=== PATIENT | male | born 1970 | race Caucasian/White ===

== ENCOUNTER 2017-09-15 09:06 | Emergency (ER) | payer OTHER, SELFPAY ==
[2017-09-15 09:32] VITALS: BP 108/87; PULSE 90; RESP 18; TEMP 36.8; O2SAT 98; BMI 26.2
--- NOTE | 2017-09-15 09:42 | HMH.EDUTC ---
[facility] [place] Impression: Influenza B Disposition: Home, Self-Care Condition on Discharge: Good Instructions: DI for Influenza -- Adult Additional Instructions: * Discussed tamiflu. pt declined. otherwise, healthy * Lots of rest * Increase fluids, water, gatorade, powerade, pedialyte if infant/toddler/child * Monitor Temp. Tylenol every 4 hours as needed no more then 5 times a day or 4000mg in 24 hours and/or ibuprofen every 6 hours as needed no more then 3200mg in 24 hours (as long as your primary care doctor has told you that it is ok to take both) for fever/aches/pain. ER if fever no less than 101 despite tylenol and Ibuprofen * You (or your child) are contagious until no fever, aches, chills x 24 hours without medication for symptoms. * Bromfed may cause drowsiness. Know how it effects you (or your child) before driving, caring for small children, or sending your child to school. No other antihistamines/allergy medications while taking bromfed. Prescriptions: Brompheniramine/Pseudoephed/Dm [Bromfed DM Cough Syrup 5mL] 10 ml PO QID PRN #240 ml PRN Reason: Cough Referrals: Jodi Isaac [Primary Care Provider] - (IMMEDIATELY for new or worsening symptoms, improvement followed by suddenly feeling worse OR no noticeable improvement over the next 48-72 hours. 911 for difficulty breathing ) Forms: Work/School Release Time of Disposition: 09:50 Medical Decision Making Vital Signs: 09/15/17 09:32 Temperature 98.2 F Temperature Source Oral Pulse Rate [Right Brachial] 90 Respiratory Rate 18 Blood Pressure [Right Arm] 108/87 Blood Pressure Mean [Right Arm] 94 Blood Pressure Source [Right Arm] Automatic Cuff Blood Pressure Position [Right Arm] Supine 02 Sat by Pulse Oximetry 98 Oxygen Delivery Method Room Air Flu A negative Flu B positive - Oumar Inquiry Pt receiving controlled substance: No [facility] [place] - General Stated complaint: poss flu Time Seen by Provider: 09/15/17 09:25 Mode of Arrival: Ambulatory Source of Information: Patient Limitations: No Limitations Description of Symptoms (Recalled from Triage Doc. by RN): Cough, Chest Congestion, chills, body aches since Friday HEENT Symptoms (Recalled from RN notes): Yes Resp Symptoms (Recalled from RN notes): Yes Skin Symptoms (Recalled from RN notes): No MS Symptoms (Recalled from RN notes): No Functional Status (Recalled from RN notes): na - History of Present Illness Provider Complaint: c/o feeling feverish, bodyaches, chills, productive cough, yellow sputum, rhinorrhea since waking up Friday, 2 days ago. Coworkers w/ cough that told him they were not contagious. Has had flu vaccine. otc cold medication hasn't helped. Aleve does except for with cough. - Related Data Home Medications Medication Instructions Recorded Confirmed Zolpidem Tartrate [Ambien 10mg 10 mg PO HS 09/15/17 09/15/17 tablet] Previous Rx's Medication Instructions Recorded Brompheniramine/Pseudoephed/Dm 10 ml PO QID PRN #240 ml 09/15/17 [Bromfed DM Cough Syrup 5mL] Allergies Allergy/AdvReac Type Severity Reaction Status Date / Time No Known Allergies Allergy Verified 09/15/17 09:36 - Worker's Comp Is this a Worker's Comp case?: No Is this an [place] Worker's Comp?: No Is this a [place] Worker's Comp?: No [facility] History I have reviewed the patient's past medical history: Yes (insomnia) Medical History: Denies:: Diabetes Mellitus Type 2, Hypertension Amputation: No Fractures: No Comment: hernia and hand - *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 Smoking Status: Current every day smoker Tobacco Type: cigarettes Alcohol Intake: never - Psychiatric History Expresses thoughts of harming self/others: None Suicide Plan Description: No Plan ROS Obtained: Yes Systems reviewed as appropriate & no additional complaints - Constitutional Reports anorexia (drinking well), Reports body ache(s), Reports chills, Reports fatigue, Reports fever(s) (subjective) - Eyes Den
--- NOTE | 2017-09-15 09:46 | ED_ITS ---
[facility] [place] Clinical Impression: Influenza B Disposition: Home, Self-Care Condition on Discharge: Good Instructions: DI for Influenza -- Adult Additional Instructions: * Discussed tamiflu. pt declined. otherwise, healthy * Lots of rest * Increase fluids, water, gatorade, powerade, pedialyte if infant/toddler/child * Monitor Temp. Tylenol every 4 hours as needed no more then 5 times a day or 4000mg in 24 hours and/or ibuprofen every 6 hours as needed no more then 3200mg in 24 hours (as long as your primary care doctor has told you that it is ok to take both) for fever/aches/pain. ER if fever no less than 101 despite tylenol and Ibuprofen * You (or your child) are contagious until no fever, aches, chills x 24 hours without medication for symptoms. * Bromfed may cause drowsiness. Know how it effects you (or your child) before driving, caring for small children, or sending your child to school. No other antihistamines/allergy medications while taking bromfed. Prescriptions: Brompheniramine/Pseudoephed/Dm [Bromfed DM Cough Syrup 5mL] 10 ml PO QID PRN # 240 ml PRN Reason: Cough Referrals: Jodi Isaac [Primary Care Provider] - (IMMEDIATELY for new or worsening symptoms , improvement followed by suddenly feeling worse OR no noticeable improvement over the next 48-72 hours. 911 for difficulty breathing ) Forms: Work/School Release Time of Disposition: 09:50 Medical Decision Making Vital Signs: 09/15/17 09:32 Temperature 98.2 F Temperature Source Oral Pulse Rate [Right Brachial] 90 Respiratory Rate 18 Blood Pressure [Right Arm] 108/87 Blood Pressure Mean [Right Arm] 94 Blood Pressure Source [Right Arm] Automatic Cuff Blood Pressure Position [Right Arm] Supine 02 Sat by Pulse Oximetry 98 Oxygen Delivery Method Room Air Flu A negative Flu B positive - Oumar Inquiry Pt receiving controlled substance: No [facility] [place] HPI - General Stated complaint: poss flu Time Seen by Provider: 09/15/17 09:25 Mode of Arrival: Ambulatory Source of Information: Patient Limitations: No Limitations Description of Symptoms (Recalled from Triage Doc. by RN): Cough, Chest Congestion, chills, body aches since Friday HEENT Symptoms (Recalled from RN notes): Yes Resp Symptoms (Recalled from RN notes): Yes Skin Symptoms (Recalled from RN notes): No MS Symptoms (Recalled from RN notes): No Functional Status (Recalled from RN notes): na - History of Present Illness Provider Complaint: c/o feeling feverish, bodyaches, chills, productive cough, yellow sputum, rhinorrhea since waking up Friday, 2 days ago. Coworkers w/ cough that told him they were not contagious. Has had flu vaccine. otc cold medication hasn't helped. Aleve does except for with cough. - Related Data Home Medications Medication Instructions Recorded Confirmed Zolpidem Tartrate [Ambien 10mg 10 mg PO HS 09/15/17 09/15/17 tablet] Previous Rx's Medication Instructions Recorded Brompheniramine/Pseudoephed/Dm 10 ml PO QID PRN #240 ml 09/15/17 [Bromfed DM Cough Syrup 5mL] Allergies Allergy/AdvReac Type Severity Reaction Status Date / Time No Known Allergies Allergy Verified 09/15/17 09:36 - Worker's Comp Is this a Worker's Comp case?: No Is this an [facility] Worker's Comp?: No Is this a [place] Worker's Comp?: No [facility] History I have reviewed the patient's past medical
[2017-09-15 09:57] VITALS: BP 110/81; RESP 18; O2SAT 97
== END 2017-09-15 09:58 | disposition home or self-care (01) ==
PROVIDERS: Emergency Provider Nurse Practitioner Family; PCP Nurse Practitioner Family
DX: J10.1 Influenza due to other identified influenza virus with other respiratory manifestations (principal); F17.210 Nicotine dependence, cigarettes, uncomplicated; Z79.899 Other long term (current) drug therapy
CPT/HCPCS: 99201

== ENCOUNTER → 2018-03-03 14:36 | Outpatient (CLI) | payer OTHER, SELFPAY ==
--- NOTE | 2018-03-03 14:50 | XR_ITS ---
[facility] HISTORY: ITS.REASON: KIDNEY STONES ORDERING PHYSICIAN: Jamari De La Rosa MD PATIENT AGE: 47 years COMPARISON: None FINDINGS: The bowel gas pattern is unremarkable. No obvious obstruction.. A 3 mm calcific density is noted along the lower pole the right kidney consistent with right nephrolithiasis. No obvious ureteral calculi. No left renal stone evident as was seen on the previous CT scan.. No obvious renal or ureteral calculi.. No acute bony anomalies evident. There are multiple abdominal wall tacks along the lower abdomen/pelvis. Prostate calcifications noted IMPRESSION: Right nephrolithiasis No left renal or ureteral calculi evident
[2018-03-16 10:10] LABS: Ca oxalate dihydrate 25 % (.)
[2018-03-16 12:28] LABS: Specimen Type Comment: (.)
== END ==
PROVIDERS: PCP Nurse Practitioner Family; Visit Provider Urology
DX: N20.0 Calculus of kidney (principal)
CPT/HCPCS: 74018; 82370

== ENCOUNTER 2021-04-07 19:20 | Emergency (ER) | payer BC, SELFPAY ==
[2021-04-07 19:21] VITALS: BP 195/99; RESP 22; TEMP 36.6; O2SAT 98; BMI 27.1
--- NOTE | 2021-04-07 19:27 | HMH.EDGENADL ---
ED Disposition Clinical Impression: Non-traumatic mid back pain, Hypertensive urgency Disposition: Home, Self-Care Condition on Discharge: Good Instructions: DI for Low Back Pain Prescriptions: Cyclobenzaprine HCl [Flexeril 10mg tablet] 10 mg PO Q8HP PRN 30 Days #90 tab PRN Reason: Muscle Spasm Transmission Status: Pending to [facility] #[id number] Referrals: Jodi Isaac [Primary Care Provider] - Time of Disposition: 19:59 - Critical Care Critical Care Time: No Attestation: On 04/07/21, the high probability of a clinically significant, sudden or life threatening deterioration of the following system(s) required my full and direct attention, intervention and personal management. The time I documented below is in addition to time spent performing reported procedures but includes the following listed in this critical care notation. Medical Decision Making - Medical Records Medical records reviewed: Yes: I reviewed the patient's medical records. - Oumar Inquiry Pt receiving controlled substance: No Vital Signs: 04/07/21 19:21 Temperature 97.8 F Temperature Source Oral Respiratory Rate 22 Blood Pressure [Right Arm] 195/99 H Blood Pressure Mean [Right Arm] 131 Blood Pressure Source [Right Arm] Automatic Cuff Blood Pressure Position [Right Arm] Sitting 02 Sat by Pulse Oximetry 98 Oxygen Delivery Method Room Air - Lab Data Lab Results 04/07/21 19:30: Urine Color Yellow, Urine Appearance Clear, Urine pH 7.0, Ur Specific [place] 1.020, Urine Protein Negative, Urine Glucose (UA) Negative, Urine Ketones Negative, Urine Blood Negative, Urine Nitrate Negative, Urine Bilirubin Negative, Urine Urobilinogen 0.2, Ur Leukocyte Esterase Negative, Urine RBC None, Urine WBC None, Ur Squamous Epith Cells None, Urine Bacteria None Orders (Tests/Meds): ED MEDICATIONS Discontinued Medications Generic Name Dose Route Start Last Admin Trade Name Freq PRN Reason Stop Dose Admin Orphenadrine Citrate 60 mg 04/07/21 19:32 04/07/21 19:34 Orphenadrine Citrate 60mg/2ml Vial IM 04/07/21 19:33 60 mg ONCE ONE Administration Medical Decision Narrative: 50yo M evaluated for right-sided back pain. Patient no acute distress on initial evaluation. Is tender to palpate right side paraspinally and right flank. Neurologically, the patient's exam is unremarkable. He has taken NSAIDs prior to arrival. Receives muscle relaxer IM. Discharged home with muscle relaxer as well. Patient noted to have hypertensive urgency without signs or symptoms of hypertensive emergency. Will monitor briefly for improvement in blood pressure prior to treatment. Patient's blood pressure now 166/104. We will treat clonidine 0.1 mg. Patient is taken Flexeril in the past with good effect. Will prescribe this. Patient will be appropriate stable for discharge once his blood pressure improves. General Adult HPI - General Stated complaint: Back pain Time Seen by Provider: 04/07/21 19:27 Mode of Arrival: Ambulatory - History of Present Illness HPI narrative: 50yo M with past medical history of low back pain presents the emergency department secondary to right-sided mid back pain. Patient reports symptoms began last Friday while cooking hotdogs. Denies any heavy lifting, fall, other trauma. States he coughed and developed pain on the right side. He was evaluated by a chiropractor Friday, Friday, Friday with minimal improvement. Patient coughed again and symptoms returned today. Denies any difficulty with voiding or having a bowel movement. Denies any fever. - Related Data Home Medications Medication Instructions Recorded Confirmed zolpidem 10 mg tablet 10 mg PO #30 tab 04/05/19 04/05/19 Previous Rx's Medication Instructions Recorded diclofenac sodium 1 % topical gel 4 g TOPICAL QID PRN #30 g 04/05/19 meloxicam 7.5 mg tablet 7.5 mg PO DAILY #30 tab 04/05/19 Cyclobenzaprine HCl [Flexeril 10mg 10 mg PO Q8HP
[2021-04-07 19:35] LABS: Microscopic, Urine URINE MICROSCOPIC (MICROSCOPIC)
[2021-04-07 19:37] LABS: Appearance,Urine CLEAR (Clear); Bilirubin,Urine Negative (Negative); Blood, Urine Negative (Negative); Color,Urine YELLOW (Yellow); Glucose,Urine (UA) Negative (Negative); Ketones,Urine Negative (Negative); Leukocyte Esterase,Urine Negative (Negative); Nitrate,Urine Negative (Negative); Protein,Urine Negative (Negative); Urobilinogen,Urine 0.2 EU/dl (0.2)
[2021-04-07 20:13] VITALS: BP 112/74; PULSE 73; RESP 17; TEMP 36.8; O2SAT 98
== END 2021-04-07 20:16 | disposition home or self-care (01) ==
PROVIDERS: Emergency Provider Family Medicine; PCP Nurse Practitioner Family
DX: M54.6 Pain in thoracic spine (principal); I16.0 Hypertensive urgency; Z87.442 Personal history of urinary calculi; F17.210 Nicotine dependence, cigarettes, uncomplicated
CPT/HCPCS: 81001; 96372; 99282

== ENCOUNTER 2021-04-08 01:26 | Emergency (ER) | payer BC, SELFPAY ==
[2021-04-08 01:30] VITALS: BP 159/112; PULSE 65; RESP 17; TEMP 36.7; O2SAT 98; BMI 27.1
--- NOTE | 2021-04-08 01:45 | HMH.EDGENADL ---
ED Disposition Clinical Impression: Thoracic back pain Qualifiers: Chronicity: chronic Back pain laterality: right Qualified Code(s): M54.6 - Pain in thoracic spine; G89.29 - Other chronic pain Disposition: Home, Self-Care Condition on Discharge: Good Instructions: DI for Low Back Pain Referrals: Provider,Referral, [Referring] - - Critical Care Critical Care Time: No Attestation: On 04/08/21, the high probability of a clinically significant, sudden or life threatening deterioration of the following system(s) required my full and direct attention, intervention and personal management. The time I documented below is in addition to time spent performing reported procedures but includes the following listed in this critical care notation. Medical Decision Making - Oumar Inquiry Pt receiving controlled substance: No Vital Signs: 04/08/21 01:30 04/08/21 02:00 Temperature 98.0 F Temperature Source Oral Pulse Rate 63 Pulse Rate [Right Brachial] 65 Respiratory Rate 17 Blood Pressure 152/85 H Blood Pressure [Right Arm] 159/112 H Blood Pressure Mean [Right Arm] 127 Blood Pressure Source [Right Arm] Automatic Cuff Blood Pressure Position [Right Arm] Sitting 02 Sat by Pulse Oximetry 98 95 Oxygen Delivery Method Room Air Room Air - Lab Data Lab Results 04/08/21 01:45: WBC 12.7 H, RBC 5.32, Hgb 16.8, Hct 49.8, MCV 93.6, MCH 31.6 H, MCHC 33.7, RDW 13.6, Plt Count 310, MPV 7.9, Neut % (Auto) 68.0, Lymph % (Auto) 24.1, [place] % (Auto) 5.4, Eos % (Auto) 1.7, Baso % (Auto) 0.8, Neut # (Auto) 8.7 H, Lymph # (Auto) 3.1, [place] # (Auto) 0.7, Eos # (Auto) 0.2, Baso # (Auto) 0.1 04/08/21 01:45: Sodium 141, Potassium 4.1, Chloride 105, Carbon Dioxide 28, Anion Gap 12.1, BUN 11, Creatinine 0.90, Estimated Creat Clear 123, Estimated GFR 89, Est GFR ( Amer) 107, Glucose 101 H, Calcium 9.2, Total Bilirubin 0.7, AST 46, ALT 44, Alkaline Phosphatase 70, Total Protein 7.3, Albumin 4.4, Globulin 2.9, Albumin/Globulin Ratio 1.5, Lipase 81 Result diagrams: 04/08/21 01:45 04/08/21 01:45 Orders (Tests/Meds): ED MEDICATIONS Discontinued Medications Generic Name Dose Route Start Last Admin Trade Name Evan PRN Reason Stop Dose Admin Sodium Chloride 1,000 mls @ 500 mls/hr 04/08/21 01:45 04/08/21 01:55 Sod Chlor 0.9% 1000ml Bag IV 05/08/21 01:44 Not Given .Q2H MYLES Iopamidol 75 ml 04/08/21 02:41 04/08/21 02:41 Iopamidol-370 (76%);100ml Bottle IV 04/08/21 02:42 75 ml ONCE ONE Administration Morphine Sulfate 4 mg 04/08/21 01:42 04/08/21 01:48 Morphine 4mg/Ml Syringe IV 04/08/21 01:43 4 mg ONCE ONE Administration Sodium Chloride 500 ml 04/08/21 01:56 04/08/21 01:57 Sodium Chloride 0.9% 500ml Bag IV 04/08/21 01:57 500 ml ONCE ONE Administration Sodium Chloride 10 ml 04/08/21 02:41 04/08/21 02:41 Sodium Chloride 0.9% 10ml Syr (Rad Only) IV 04/08/21 02:42 10 ml ONCE ONE Administration Medical Decision Narrative: Upon arrival patient is hypertensive but otherwise hemodynamically stable afebrile nontoxic-appearing. Differential diagnosis includes but is not limited to nephrolithiasis, spinal strain, cholecystitis, choledocholithiasis. Will obtain broad laboratory work-up along with CT scan for further work-up and evaluation. Also obtain urinalysis. Patient was given 4 mg of morphine for symptomatic relief. Laboratory work-up interpreted independently and overall unremarkable white count mildly elevated 12.7 otherwise unremarkable no elevated LFTs no significant electrolyte abnormalities patient had relief with morphine. Creatinine within normal limits. Lipase normal. UA from visit earlier today reviewed and unremarkable, no signs consistent with RBCs or WBC/nitrites CT scan reviewed and overall unremarkable patient had a left-sided renal stone however patient's pain is all in the right do not believe this to be the etiology of his pain. Is most likely musculosk
--- NOTE | 2021-04-08 01:58 | CT_ITS ---
PROCEDURE INFORMATION: Exam: CT Abdomen And Pelvis With Contrast Exam date and time: 04/08/2021 1:58 AM Age: 50 years old Clinical indication: Pain; Other: Low back; Patient HX: HX of hernia SX; Additional info: Ruq pain TECHNIQUE: Imaging protocol: Computed tomography of the abdomen and pelvis with contrast. Radiation optimization: All CT scans at this facility use at least one of these dose optimization techniques: automated exposure control; mA and/or kV adjustment per patient size (includes targeted exams where dose is matched to clinical indication); or iterative reconstruction. Contrast material: ISOVUE; Contrast volume: 75 ml; Contrast route: IV; [facility] pelvis wo con 02/09/2018 12:32 PM FINDINGS: Lungs: Uremarkable. No infiltrate. Liver: Unremarkagble.No mass. Gallbladder and bile ducts: Normal. No calcified stones. No ductal dilation. Pancreas: Normal. No ductal dilation. Spleen: Calcified granulomas of the spleen. Adrenal glands: Normal. No mass. Kidneys and ureters: 2.1 cm exophytic cyst arising from the left kidney. 4 mm nonobstructing left renal calyceal calculus at the upper pole level. Stomach and bowel: No inflammatory or obstructive changes of bowel. Appendix: No evidence of appendicitis. Intraperitoneal space: No free air or free fluid. Vasculature: Unremarkable. No abdominal aortic aneurysm. Lymph nodes: Unremarkable. No enlarged lymph nodes. Urinary bladder: Unremarkable as visualized. Reproductive: Unremarkable as visualized. Bones/joints: Unremarkable. No acute fracture. Soft tissues: Ventral abdominal wall hernia repair. IMPRESSION: 4 mm nonobstructing left renal calyceal calculus at the upper pole level. COMMENTS: Consistent with the [employer]'s Incidental Findings Committee white paper (J Am Kimberly Radiol 2018): Any incidental renal lesion less than 1 cm or classified as too small to characterize, or any incidental cystic renal lesion characterized as simple-appearing, is likely benign. No follow-up imaging is recommended for these lesions per consensus recommendations based on imaging criteria.
[2021-04-08 02:00] VITALS: BP 152/85; PULSE 63; O2SAT 95
[2021-04-08 02:01] LABS: Basophils # 0.1 K/mm3 (0-0.2); Basophils % 0.8 % (0.1-2.0); Eosinophils # 0.2 K/mm3 (0.0-0.4); Eosinophils % 1.7 % (0.1-12.0); Hematocrit 49.8 % (42.0-52.0); Hemoglobin 16.8 g/dL (14.1-18.0); Lymphocytes # 3.1 K/mm3 (0.7-4.5); Lymphocytes % 24.1 % (10-50); Mean Corpuscular HGB Conc 33.7 g/dL (31.8-35.4); Mean Corpuscular Hemoglobin 31.6 pg (27.0-31.2); Mean Corpuscular Volume 93.6 fl (80-94); Mean Platelet Volume 7.9 fl (7.4-10.4); Monocytes # 0.7 K/mm3 (0.1-1.0); Monocytes % 5.4 % (1.7-9.3); Neutrophils # 8.7 K/mm3 (1.8-7.8); Platelet Count 310 K/mm3 (142-424); Red Blood Count 5.32 M/mm3 (4.60-6.20); Red Cell Distribution Width 13.6 % (11.5-17.5); White Blood Count 12.7 K/mm3 (4.8-10.8)
[2021-04-08 02:17] LABS: Alanine Aminotransferase 44 U/L (12-78); Albumin Level 4.4 g/dl (3.5-5.0); Albumin/Globulin Ratio 1.5 (1.1-1.8); Alkaline Phosphatase 70 U/L (38-126); Anion Gap 12.1 mEq/L (5-15); Aspartate Amino Transferase 46 U/L (17-59); Bilirubin,Total 0.7 mg/dl (0.2-1.3); Blood Urea Nitrogen 11 mg/dl (9-20); Calcium 9.2 mg/dl (8.4-10.2); Carbon Dioxide 28 mmol/L (22.0-30.0); Chloride 105 mmol/L (98-107); Creatinine Clearance Estimated 123 mL/min (50-200); Estimated Glomerular Filt Rate 89 ml/min (>60); GFR (African American) 107 ML/MIN (>60); Globulin 2.9 g/dL (1.3-3.2); Glucose 101 mg/dl (74-100); Lipase 81 U/L (23-300); Potassium 4.1 mmoL/L (3.5-5.1); Sodium 141 mmol/L (136-145); Total Protein,Serum 7.3 g/dl (6.3-8.2)
--- NOTE | 2021-04-08 02:39 | PC.NURSE ---
pt back form CT
--- NOTE | 2021-04-08 04:28 | PC.NURSE ---
0325 Radiology contacted [facility] re: CT scan, was told that there was a high volume and was not assigned
[2021-04-08 04:50] VITALS: BP 133/89; PULSE 90; RESP 20; TEMP 36.7; O2SAT 96
== END 2021-04-08 04:57 | disposition home or self-care (01) ==
PROVIDERS: Emergency Provider Emergency Medicine; PCP Nurse Practitioner Family
DX: G89.29 Other chronic pain (principal); M54.6 Pain in thoracic spine; I10 Essential (primary) hypertension; Z87.442 Personal history of urinary calculi
CPT/HCPCS: 74177; 80053; 83690; 85025; 96365; 96375; 99284; Q9967

== ENCOUNTER → 2021-10-08 09:04 | Outpatient (CLI) | payer BC, SELFPAY ==
[2021-10-09 06:48] LABS: Covid-19 Nasal PCR Sendout Lex POSITIVE
== END ==
PROVIDERS: PCP Family Medicine; Visit Provider Nurse Practitioner
DX: U07.1 COVID-19 (principal)
CPT/HCPCS: C9803; U0004; U0005

== ENCOUNTER 2022-03-22 12:43 | Emergency (ER) | payer BC, SELFPAY ==
[2022-03-22 13:17] VITALS: BP 112/73; PULSE 70; RESP 17; TEMP 36.7; O2SAT 98; BMI 25.7
--- NOTE | 2022-03-22 13:20 | HMH.EDUTC ---
[facility] [place] Impression: Viral syndrome Disposition: Home, Self-Care Condition on Discharge: Good Instructions: DI for Viral Syndrome, DI for COVID-19 (Suspected or Confirmed ), Preventing the Spread of Coronavirus Discharge Instructions Additional Instructions: Drink plenty of fluids. Take tylenol or ibuprofen for pain or fever. Follow up with your regular doctor. GO TO THE ER FOR ANY WORSENING SYMPTOMS Quarantine until you know the results of your covid-19 test. Notify your school or workplace of your results and follow their instructions regarding return to work/school. Referrals: Provider,Referral, [Primary Care Provider] - Time of Disposition: 13:49 Medical Decision Making - Medical Records Medical records reviewed: No: I reviewed the patient's medical records. - Oumar Inquiry Pt receiving controlled substance: No Vital Signs: 03/22/22 13:17 03/22/22 13:50 Temperature 98.1 F 98.1 F Temperature Source Oral Pulse Rate 70 Pulse Rate [Left] 70 Respiratory Rate 17 17 Blood Pressure 112/73 Blood Pressure [Right Arm] 112/73 Blood Pressure Mean [Right Arm] 86 02 Sat by Pulse Oximetry 98 [facility] [place] - General Stated complaint: covid exposure, h/a Time Seen by Provider: 03/22/22 13:20 Description of Symptoms (Recalled from Triage Doc. by RN): patient comes in for covid test, patients symptoms are headache. patient was exposed by girlfriends childrenl. HEENT Symptoms (Recalled from RN notes): Yes Resp Symptoms (Recalled from RN notes): No Skin Symptoms (Recalled from RN notes): No MS Symptoms (Recalled from RN notes): No Functional Status (Recalled from RN notes): n/a - History of Present Illness Provider Complaint: Members of his family have tested positive for covid-19. Since yesterday he has not felt good and he has had a head ache. - Related Data Previous Rx's Medication Instructions Recorded diclofenac sodium 1 % topical gel 4 g TOPICAL QID PRN #30 g 04/05/19 Cyclobenzaprine HCl [Flexeril 10mg 10 mg PO Q8HP PRN 30 Days #90 tab 04/07/21 tablet] Allergies Allergy/AdvReac Type Severity Reaction Status Date / Time No Known Allergies Allergy Verified 03/22/22 13:20 - Worker's Comp Is this a Worker's Comp case?: No [facility] History - Hepatitis A Screen Attestation statement:: This patient has been screened for Hepatitis A risk factors. I have reviewed the patient's past medical history: Yes Medical History: Reports:: Kidney Stones Denies:: Diabetes Mellitus Type 1, Diabetes Mellitus Type 2, Hypertension Laterality Cases: Bilateral: Tonsillectomy Amputation: No Fractures: Yes (wrist) Comment: left hand surgery, double hernia surgery - 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 Smoking Status: Current every day smoker Tobacco Type: cigarettes # Packs/Day (cigarettes): 1 Alcohol Intake: current Alcohol Intake Frequency:: holidays/special occasions only Occupational Status: other Family Hx:: Heart Attack, Coronary Artery Disease, Kidney Disease, Hypertension, Thyroid Disorder ROS Obtained: Yes All systems reviewed & no additional complaints - Constitutional Constitutional: Reports as per HPI - Eyes Eyes: Denies eye discharge - ENT Ears, Nose, Mouth, and Throat: Reports as per HPI - Cardiovascular Cardiovascular: Denies chest pain - Respiratory Respiratory: Reports cough Physical Exam - General General appearance: alert, in no apparent distress - Head Head exam: atraumatic, normocephalic, normal inspection - Eye Eye exam: Present: normal appearance, PERRL, EOMI - ENT ENT exam: Present: normal exam, normal oropharynx, mucous membranes moist, TM's normal bilaterally, normal external ear exam - Neck Neck exam: Present: normal inspection, full ROM, trachea midline. Absent: meningismus, lymphadenopathy - Chest Chest inspection: Present: normal inspection, symmetric chest wall rise. Absent: tenderness - Respiratory Respiratory exa
[2022-03-22 13:50] VITALS: BP 112/73; PULSE 70; RESP 17; TEMP 36.7
== END 2022-03-22 13:53 | disposition home or self-care (01) ==
PROVIDERS: Emergency Provider Nurse Practitioner Family
DX: Z20.822 Contact with and (suspected) exposure to COVID-19 (principal); B34.9 Viral infection, unspecified
CPT/HCPCS: 99212; C9803; G0463; U0003; U0005

== ENCOUNTER 2022-03-27 08:01 | Emergency (ER) | payer BC, SELFPAY ==
--- NOTE | 2022-03-27 08:04 | PC.NURSE ---
pt provided paperwork to fill out for visit
--- NOTE | 2022-03-27 08:08 | PC.NURSE ---
pt brought back to room 1
[2022-03-27 08:10] VITALS: BP 151/96; PULSE 86; RESP 18; TEMP 36.4; O2SAT 97; BMI 25.7
--- NOTE | 2022-03-27 08:27 | HMH.EDUTC ---
[facility] Disposition Clinical Impression: Viral syndrome, Exposure to COVID-19 virus Disposition: Home, Self-Care Condition on Discharge: Good Instructions: DI for COVID-19 (Suspected or Confirmed ), Preventing the Spread of Coronavirus Discharge Instructions Additional Instructions: Drink plenty of fluids. Take tylenol or ibuprofen for pain or fever. Take the medications as directed. Follow up with your regular doctor. GO TO THE ER FOR ANY WORSENING SYMPTOMS Quarantine until you know the results of your covid-19 test. Notify your school or workplace of your results and follow their instructions regarding return to work/school. Prescriptions: Ondansetron [Zofran 4mg ODT] 4 mg PO Q8HP PRN #12 tab PRN Reason: Nausea Transmission Status: Received by [facility] Benzonatate [Benzonatate 100mg cap] 100 mg PO TIDP PRN #30 cap PRN Reason: Cough Transmission Status: Received by [facility] methylPREDNISolone [Medrol] 4 mg PO DIRECTED 6 Days #21 packet Transmission Status: Received by [facility] Referrals: Provider,Referral, [Primary Care Provider] - Time of Disposition: 08:35 Medical Decision Making - Medical Records Medical records reviewed: No: I reviewed the patient's medical records. - Oumar Inquiry Pt receiving controlled substance: No Vital Signs: 03/27/22 08:10 03/27/22 08:43 Temperature 97.5 F L 97.5 F L Temperature Source Oral Oral Pulse Rate 84 Pulse Rate [Left Radial] 86 Respiratory Rate 18 18 Blood Pressure 148/86 H Blood Pressure [Right Arm] 151/96 H Blood Pressure Mean [Right Arm] 114 02 Sat by Pulse Oximetry 97 Oxygen Delivery Method Room Air Room Air Orders (Tests/Meds): ORDERS Category Date Time Status Covid-19 Nasal PCR ([facility]) Routine Lab 03/27/22 08:[address] [facility] HPI - General Stated complaint: COVID Test; Cough Runny nose ear pain Time Seen by Provider: 03/27/22 08:27 Mode of Arrival: Ambulatory Source of Information: Patient Limitations: No Limitations Description of Symptoms (Recalled from Triage Doc. by RN): pt to [facility] c/o left ear pain and non-productive cough x2 days. pt states he has had a recent covid exposure and requests a covid test. HEENT Symptoms (Recalled from RN notes): Yes Resp Symptoms (Recalled from RN notes): Yes Skin Symptoms (Recalled from RN notes): No MS Symptoms (Recalled from RN notes): No Functional Status (Recalled from RN notes): na - History of Present Illness Provider Complaint: He states that he has multiple members of his family that have covid-19. He began having a low grade fever and feeling bad 2 days ago. He has left ear pain and pressure at this time. - Related Data Previous Rx's Medication Instructions Recorded Benzonatate [Benzonatate 100mg 100 mg PO TIDP PRN #30 cap 03/27/22 cap] Ondansetron [Zofran 4mg ODT] 4 mg PO Q8HP PRN #12 tab 03/27/22 methylPREDNISolone [Medrol] 4 mg PO DIRECTED 6 Days #21 03/27/22 packet Allergies Allergy/AdvReac Type Severity Reaction Status Date / Time No Known Allergies Allergy Verified 03/27/22 08:14 - Worker's Comp Is this a Worker's Comp case?: No [facility] History - Hepatitis A Screen Attestation statement:: This patient has been screened for Hepatitis A risk factors. I have reviewed the patient's past medical history: Yes Medical History: Reports:: Kidney Stones Denies:: Diabetes Mellitus Type 1, Diabetes Mellitus Type 2, Hypertension Laterality Cases: Bilateral: Tonsillectomy Amputation: No Fractures: Yes (wrist) Comment: left hand surgery, double hernia surgery - 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 Smoking Status: Current every day smoker Tobacco Type: cigarettes # Packs/Day (cigarettes): 1 Alcohol Intake: current Alcohol Intake Frequency:: holidays/special occasions only Occupational Status: other Family Hx:: Heart Attack, Coronary Artery Disease, Kidney Disease, Hypertension,
--- NOTE | 2022-03-27 08:28 | PC.NURSE ---
[facility] provider at the bedside
[2022-03-27 08:43] VITALS: BP 148/86; PULSE 84; RESP 18; TEMP 36.4; O2SAT 97
== END 2022-03-27 08:44 | disposition home or self-care (01) ==
PROVIDERS: Emergency Provider Nurse Practitioner Family
DX: Z20.822 Contact with and (suspected) exposure to COVID-19 (principal); R05.9 Cough, unspecified; R09.89 Other specified symptoms and signs involving the circulatory and respiratory systems; H92.02 Otalgia, left ear
CPT/HCPCS: 99212; C9803; G0463; U0003; U0005

== ENCOUNTER 2022-08-20 17:17 | Emergency (ER) | payer OTHER, SELFPAY ==
--- NOTE | 2022-08-20 18:22 | XR_ITS ---
PROCEDURE INFORMATION: Exam: XR Left Hand Exam date and time: 08/20/2022 6:23 PM Age: 52 years old Clinical indication: Pain; Hand; Left TECHNIQUE: Imaging protocol: Radiologic exam of the Left hand. Views: 3 or more views. COMPARISON: No relevant prior studies available. FINDINGS: Bones/joints: Subcentimeter bone fragment adjacent to the ulnar aspect of the distal interphalangeal articulation of the 3rd finger appears well corticated and likely reflects nonunion secondary ossification center or remote avulsion fragment. No evidence of acute displaced cortical disruption or dislocation is seen. Mild degenerative changes most notably at the junction of the greater multangular and 1st metacarpal. Soft tissues: No focal soft tissue swelling or radiopaque foreign object. IMPRESSION: No acute fracture is identified.
--- NOTE | 2022-08-20 18:22 | XR_ITS ---
PROCEDURE INFORMATION: Exam: XR Left Wrist Exam date and time: 08/20/2022 6:24 PM Age: 52 years old Clinical indication: Pain; Wrist; Left TECHNIQUE: Imaging protocol: Radiologic exam of the Left wrist. Views: 3 or more views. COMPARISON: No relevant prior studies available. FINDINGS: Bones/joints: No evidence of acute displaced cortical disruption or dislocation. Osteophytosis and eburnation of the articulating surfaces most notably at the junction of the trapezium and 1st metacarpal. Soft tissues: No radiopaque foreign object or localized soft tissue swelling is appreciated. IMPRESSION: No acute fracture is identified.
[2022-08-20 18:33] VITALS: BP 167/86; PULSE 63; RESP 18; TEMP 36.9; O2SAT 97; BMI 25.7
--- NOTE | 2022-08-20 18:54 | EXP.UTC ---
Discharge Plan Disposition Patient Disposition: Home, Self-Care Condition: Good Prescriptions Prescriptions: No Action benzonatate 100 MG capsule 100 mg PO TIDP PRN (Reason: Cough) Qty: 30 0RF methylprednisolone 4 MG tablets,dose pack 4 mg PO DIRECTED 6 Days Qty: 21 0RF ondansetron 4 MG tablet,disintegrating 4 mg PO Q8HP PRN (Reason: Nausea) Qty: 12 0RF Referrals Follow up/Referrals: Jodi Isaac [Primary Care Provider] - See instructions Activity Restrictions/Add. Instructions Additional Instructions/Restrictions: sprain- rest Ice with cold pack for 20 minutes remove may repeat for comfort every hour splint for support and swelling no less in the shower. Be sure not too tight but not to lose either Elevate with arm above your heart as much as possible to help reduce swelling and therefore pain Ibuprofen every 6 hours as needed for pain or inflammation. If needs something more you can take Tylenol every 4 hours as needed as long as her primary care has told he was okayed for you to take both. Follow-up immediately if new or worsening symptoms or no noticeable improvement over the next 3-5 days. call ortho if no improvement Clinical Impressions Clinical Impression: Left wrist sprain Instructions Patient Instructions: DI for Wrist Sprain Discharge ED Provider: Kamla ([facility] [facility] [place] General Stated complaint: AO 08/11 FELL @HOME ON LEFT HAND Mode of Arrival: Ambulatory Source of Information: Patient Limitations: No Limitations Time Seen by Provider: 08/20/22 18:54 Description of Symptoms (Recalled from Triage Doc. by RN): pt comes in with c/o left hand and wrist pain. pt fell 2 weeks ago rabibt hunting. not getting any better. HEENT Symptoms (Recalled from RN notes): No Resp Symptoms (Recalled from RN notes): No Skin Symptoms (Recalled from RN notes): No MS Symptoms (Recalled from RN notes): Yes Functional Status (Recalled from RN notes): n/a History of Present Illness Provider Complaint: 52 yr old male c/o left hand and wrist pain. pt fell 2 weeks ago rabbits hunting. not getting any better Related Data Previous Rx's Medication Instructions Recorded benzonatate 100 mg capsule 100 mg PO TIDP PRN Cough #30 caps 03/27/22 methylprednisolone 4 mg tablets in 4 mg PO DIRECTED 6 days #21 03/27/22 a dose pack packets ondansetron 4 mg disintegrating 4 mg PO Q8HP PRN Nausea #12 tabs 03/27/22 tablet Allergies Allergy/AdvReac Type Severity Reaction Status Date / Time No Known Allergies Allergy Verified 08/20/22 18:36 Worker's Comp Is this a Worker's Comp case?: No PFSH PFS Disclaimer: The information contained in this section may have been updated after the patient was seen, as this information can be updated by other users. 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) Smoking Status: Current every day smoker tobacco type: cigarettes packs per day: 1 alcohol intake: current current occupational status: other Travel in the last 8 weeks: None ROS Obtained: Yes All systems reviewed & no additional complaints except as documented Constitutional Constitutional: Reports system reviewed and no additional complaints, except as documented and Reports as per HPI Eyes Eyes: Reports system reviewed and no additional complaints, except as documented ENT Ears, Nose, Mouth, and Throat: Reports system reviewed and no additional complaints, except as documented Cardiovascular Cardiovascular: Reports system reviewed and no additional complaints, except as documented Respiratory Respiratory: Reports system reviewed and no additional complaints, except as documented Gastrointestinal Gastrointestingal: Reports system reviewed and no additional complaints, except as documented Musculoskeletal Musculoskeletal: Reports system reviewed and no additional complaints, except as documented, Reports as per HPI, Reports arthralgias and Reports limited range of motion
[2022-08-20 19:14] VITALS: BP 167/86; PULSE 63; RESP 18; TEMP 36.9
== END 2022-08-20 19:15 | disposition home or self-care (01) ==
PROVIDERS: Emergency Provider Nurse Practitioner Family; PCP Nurse Practitioner Family
DX: S63.502A Unspecified sprain of left wrist, initial encounter (principal); W19.XXXA Unspecified fall, initial encounter
CPT/HCPCS: 73110; 73130; 99213; G0463

== ENCOUNTER 2025-07-04 14:38 | Outpatient (CLI) | payer OTHER, SELFPAY ==
--- NOTE | 2025-07-04 14:43 | XR_ITS ---
FINAL REPORT CLINICAL HISTORY: left sided rib pain FINDINGS: 2 views of the chest were obtained . The heart is normal in size. The mediastinum is within normal limits. Nodular densities are seen in the right upper lobe with shaded scarring, likely postinflammatory. Lungs are otherwise clear there is no pneumothorax. Osseous structures are unremarkable. IMPRESSION: No acute cardiopulmonary process. Reviewed, Interpreted and Dictated by Milan Ruiz MD Transcribed by Angeline Vernon Authenticated and [facility]
--- NOTE | 2025-07-04 14:43 | XR_ITS ---
FINAL REPORT CLINICAL HISTORY: LT-SIDE CHEST WALL PAIN FINDINGS: LEFT RIBS 3 views were obtained. There is no acute fracture or dislocation. Visualized joint spaces are normally aligned. Soft tissues are unremarkable. IMPRESSION: No acute bony abnormality. Reviewed, Interpreted and Dictated by Milan Ruiz MD Transcribed by Angeline Vernon Authenticated and [facility]
--- OUTSIDE RECORDS SUMMARY | 2025-07-04 15:38 | XMS_ITS | Encounter Summary ---
Author Organization [facility] Address [address] [place] [address] Care Team Providers Care Acid Concentrator Name Role Phone Jodi Isaac APRN Primary Care Provider [phone] Reason for Visit * Reason Comments Med Refill Encounter Details Date Type Department Care Team (Late st Contact Info) Description 11/15/2019 Refill [facility] [address] [place] [address] Jodi Isaac, [address] [place] [address] Primary insomnia 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 Tobacco Use Types Packs/Day Years Used Date Smoking Tobacco: Former Cigarettes Q uit: 09/17/2018 Smokeless Tobacco: Never Alcohol Use Standard Drinks/Week Comments Yes 0 (1 standard drink = 0.6 oz pur e alcohol) Sex and Gender Information Value Date Recorded Sex Assigned at Not on file Legal Sex Male 4:38 PM EDT Gender Identity Not on file Sexual Orientation Not on file documented as of this encounter Plan of Treatment Not on file documented as of this encounter Visit Diagnoses Diagnosis Primary insomnia Persistent disorder of initiating or maintaining sleep documented in this encounter Care Teams Acid Concentrator Relationship Specialty Start Date End Date Jodi Isaac, [address] [place] [address] PCP - General Family Medicine 03/14/17 documented as of this encounter
--- OUTSIDE RECORDS SUMMARY | 2025-07-04 15:38 | XMS_ITS | Patient Health Record ---
Author Organization [facility] Address [address] [facility] [address] [place] [id number] Care Team Providers Care Bulk Coolers Installer Name Role Phone Smith Pearce Unavailable [phone] Allergies No Known Allergies Reason For Referral No Information Medications Medication SIG (Take, Route, Frequency, Duration) Notes Start Date End Date Status Meloxicam 15 MG 1 tablet Orally Once a day; Duration: 30 day(s) 12/05/2023 Not-Angel ing Vitamin D (Ergocalciferol) 1.25 MG (27541 UT) 1 capsule Orally once a week 03/13/2023 Not-Taking Nicotine 21 MG/24HR 1 patch to skin Transdermal Once a day; Duration: 30 days 07/04/2025 Active Gabapentin 300 MG 1 capsule Orally twi ce a day; Duration: 15 days 07/04/2025 Active Immunizations Vaccine Route Administration Date Status Comme nts COVID 19 Pfizer Unknown 07/12/2021 Administered Problems Problem Type SNOMED Code ICD Code Onset Dates Problem Status W/U Status Risk Notes Problem Tobacco user ([id number]) Cigarette nicotine dependence without complication (F17.210) Active confirmed Vital Signs Heart Rate 95 /min 07/04/2025 Blood pressure diastolic 78 mm Hg 07/04/2025 Height 73 in 07/04/2025 Blood pressure systolic 130 mm Hg 07/04/2025 Weight 213.6 lbs 07/04/2025 BMI 28.18 kg/m2 07/04/2025 Encounters Encounter Location Date Provider Diagnosis [facility] [address] [place] [facility] [address] [place] [phone] 07/04/2025 Smith Pearce Left-sided chest wal l pain R07.89 Assessments Encounter Date Diagnosis (ICD Code) Assessment Notes Treatment Notes Treatment Clinical Notes Section Notes 07/04/2025 Left-sided chest wall pain (ICD-10 - R07.89) Plan Of Treatment Pending Test Test Name Order Date CXR 07/04/2025 X ray : ribs left 07/04/2025 Insurance Providers Payer Name Payer Address Payer Phone Subscriber Number Group Number Insured Name Patient Relationship to Insured Coverage Start Date Coverage End Date [facility] [address] [place] [address] [phone] [id number] KATHRIN Andrade Self - patient is the insured Medical (General) History Medical History History ICD Code diverticulitis kidney stones Colon polyps 50 pack year smoking history as of 2022 Surgical History Surgery Date(Month/Year) hernia nerve surgery R hand colonoscopy 2019 kidney stone 2019
--- OUTSIDE RECORDS SUMMARY | 2025-07-04 15:39 | XMS_ITS | Clinical Summary ---
Author Organization [facility] Address [address] [place] [address] Care Team Providers Care Table Filler Name Role Phone Jodi Isaac Tania PAEZ Primary Care Provider [phone] Allergies No known active allergies Medications zolpidem (AMBIEN) 10 MG tabletIndication s:Primary insomnia Take 1 tablet by mouth At Night As Needed for Sleep. for sleep 30 tablet 5 11/12/2019 Active Active Problems Problem Noted Date Diagnosed Date Insomnia 02/05/2018 Resolved Problems Problem Noted Date Diagnosed Date Resolved Date Nephrolithiasis 02/05/2018 03/03/2019 Irritable behavior 02/05/2018 9 Gross hematuria 02/05/2018 03/03/2019 Family History Medical History Relation Name Comments COPD Father Relation Name Status Comments Father 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 Tobacco Use Types Packs/Day Years Used Date Smoking Tobacco: Former Cigarettes Q uit: 09/17/2018 Smokeless Tobacco: Never Tobacco Cessation:Ready to Q uit: Yes Alcohol Use Standard Drinks/Week Comments Yes 0 (1 standard drink = 0.6 oz pur e alcohol) Abuse Screen Answer Date Recorded Unsafe at Home or Work/School Not on file Feels Threatened by Someone? Not on file 07/2023 Does Anyone Keep You from Co ntacting Others or Doint Things Outside the Home? Not on file 06/18/2023 Physical Sign of Abuse Present Not on file 1 Housing Stability Answer Date Recorded Current Living Arrangements Not on file 06/08 Potentially Unsafe Housing Conditions Not on eric e 06/18/2023 Family and Community Support Answer Rick e Recorded Help with Day-to-Day Activities Not on file 06/18/2023 Lonely or Isolated Not on file 06/18/2023 Employment Answer Date Recorded Do you want help finding or keeping work or a ben b? Not on file 06/18/2023 Disabilities Answer Date Recorded Concentrating, Remembering, or Making Decisions Difficulty Not on file 06/18/2023 Doing Errands Independently Difficulty Not on fi le 06/18/2023 Education Answer Date Recorded Help with school or training? Not on file Preferred Language Not on file 06/18/2023 Sex and Gender Information Value Date Recorded Sex Assigned at Not on file Legal Sex Male 4:38 PM EDT Gender Identity Not on file Sexual Orientation Not on file Last Filed Vital Signs Vital Sign Reading Time Taken Comments Blood Pressure 140/68 11/12/2019 3:56 PM EST Pulse 80 11/12/2019 3:56 PM EST Temperature 36.3 C (97.3 F) 11/12/2019 3:56 PM EST Respiratory Rate 16 11/12/2019 3:56 PM EST Oxygen Saturation 96% 03/16/2017 1:30 PM EDT Inhaled Oxygen Concentration - - Weight 88.1 kg (194 lb 3.2 oz) 11/12/2019 3:56 P M EST Height 182.9 cm (6' 0.01 ) 11/12/2019 3:56 PM ES T Body Mass Index 26.33 11/12/2019 3:56 PM EST Plan of Treatment Health Maintenance Due Date Last Done Comments COLOGUARD 2013 COLON CANCER SCREENING 5 YEA R SIGMOIDOSCOPY 2013 CT COLONOGRAPHY 2013 FECAL OCCULT BLOOD TEST 2013 FIT Testing (1 year) 2013 ANNUAL PHYSICAL 03/14/2017 HEPATITIS C SCREENING 03/14/2017 Pneumococcal Vaccine 50+ (1 of 1 - PCV) 2018 ZOSTER VACCINE (1 of 2) 2018 TDAP/TD VACCINES (2 - Td or Tdap) 03/12/2023 03/12/2013 (Patient-Reported (Performed Externally)) INFLUENZA VACCINE 04/08/2025 COLONOSCOPY 04/07/2027 04/07/2017, 04/07/2017 COLORECTAL CANCER SCREENING 04/07/2027 Procedures Procedure Name Priority Date/Time Associated Diagnosis Comments SCANNED - COLONOSCOPY 04/07/2017 from Last 3 Months or Most Recently Relevant to Health Maintenance Results * SCANNED - COLONOSCOPY (04/07/2017) Jodi Isaac APRN CHART REVIEW TABS Final Resul t from Last 3 Months or Most Recently Relevant to Health Maintenance Insurance [facility] PPO Care Teams Table Filler Relationship Specialty Start Date End Date Jodi Isaac APRN [address] [facility] [place] [address] PCP - General Family Medicine 03/14/17
== END 2025-07-04 23:59 | disposition home or self-care (01) ==
LOC: RAD 14:41
PROVIDERS: PCP Family Medicine; Visit Provider Family Medicine
DX: R07.89 Other chest pain (principal)
CPT/HCPCS: 71046; 71100